=== PATIENT | male | born 1975 | race Caucasian/White ===

== ENCOUNTER 2017-03-03 12:22 | Emergency (ER) | payer BC ==
[2017-03-03 12:32] VITALS: BP 141/101
--- NOTE | 2017-03-03 14:07 | EDM.PDOC ---
ED HPI GENERAL MEDICAL PROBLEM - General Chief Complaint: Genitourinary Problem Stated Complaint: LEFT TESTICLE PAIN Time Seen by Provider: 03/03/17 12:38 Source of Information: Reports: Patient History Limitations: Reports: No Limitations - History of Present Illness INITIAL COMMENTS - FREE TEXT/NARRATIVE: The patient presents with left testicular pain that started last night. He denies any trauma. He has no dysuria or hematuria. This has never happened to him before. He has no drainage. He has no lesions. Onset: Gradual Duration: Day(s): (Last night) Quality: Reports: Ache Severity: Moderate Improves with: Reports: None Worsens with: Reports: Movement Associated Symptoms: Reports: No Other Symptoms Left Pelvic Pain Score (Numeric/FACES): 1 - Related Data Allergies Allergy/AdvReac Type Severity Reaction Status Date / Time No Known Allergies Allergy Verified 03/03/17 12:32 Home Meds: Home Meds Cholecalciferol (Vitamin D3) [Vitamin D] 1 tab PO DAILY 03/03/17 [History] Indomethacin 1 tab PO DAILY PRN 03/03/17 [History] Levofloxacin [Levaquin] 500 mg PO Q24H #10 tablet 03/03/17 [Rx] Past Medical History Musculoskeletal History: Reports: Gout - Past Surgical History Musculoskeletal Surgical History: Reports: Other (See Below) Other Musculoskeletal Surgeries/Procedures:: knee surgery 2004 Social & Family History - Tobacco Use Smoking Status *Q: Current Every Day Smoker Years of Tobacco use: 20 Packs/Tins Daily: 0.5 - Caffeine Use Caffeine Use: Reports: Soda - Alcohol Use Days Per Week of Alcohol Use: 1 Number of Drinks Per Day: 4 Total Drinks Per Week: 4 - Recreational Drug Use Recreational Drug Use: Yes Drug Use in Last 12 Months: No Recreational Drug Type: Reports: Cocaine ED ROS GENERAL - Review of Systems Review Of Systems: See Below Constitutional: Reports: No Symptoms HEENT: Reports: No Symptoms Respiratory: Reports: No Symptoms Cardiovascular: Reports: No Symptoms Endocrine: Reports: No Symptoms GI/Abdominal: Reports: No Symptoms : Reports: Other (Left testicular pain) ED EXAM, GI/ABD - Physical Exam Exam: See Below Exam Limited By: No Limitations General Appearance: Alert, No Apparent Distress Ears: Normal External Exam Nose: Normal Inspection Head: Atraumatic, Normocephalic Neck: Normal Inspection Respiratory/Chest: No Respiratory Distress, Lungs Clear, Normal Breath Sounds Cardiovascular: Regular Rate, Rhythm, No Edema, No Murmur GI/Abdominal: Soft, Non-Tender, No Organomegaly, No Mass (Male) Exam: Other (Pain upon palpation to the left testicle. No palpable masses. No lesions or discharge noted.) Course - Vital Signs Last Recorded V/S: Last Vital Signs Temp 97.6 F 03/03/17 12:28 Pulse 79 03/03/17 12:28 Resp 18 03/03/17 12:28 BP 141/101 H 03/03/17 12:28 Pulse Ox 98 03/03/17 12:28 - Orders/Labs/Meds Labs: Laboratory Tests 03/03/17 Range/Units 13:40 Urine Color Yellow (Yellow) Urine Appearance Clear (Clear) Urine pH 7.0 (5.0-8.0) Ur Specific [place] 1.020 (1.005-1.030) Urine Protein Trace H (Negative) Urine Glucose (UA) Negative (Negative) Urine Ketones Negative (Negative) Urine Occult Blood Negative (Negative) Urine Nitrite Negative (Negative) Urine Bilirubin Negative (Negative) Urine Urobilinogen 0.2 (0.2-1.0) Ur Leukocyte Esterase Trace H (Negative) Urine RBC 0-5 (0-5) /hpf Urine WBC 5-10 H (0-5) /hpf Ur Epithelial Cells 0-5 (0-5) /hpf Amorphous Sediment Moderate H (NOT SEEN) /hpf Urine Bacteria Few (FEW) /hpf Urine Mucus Few (FEW) /hpf - Re-Assessments/Exams Free Text/Narrative Re-Assessment/Exam: 03/03/17 14:06 I ordered an US of his scrotum and a UA. 03/03/17 14:17 The US shows increased vascularity within the left epididymis raising the possibility of left-sided epididymitis. His UA shows no UTI. I will get him on levaquin for 10 days. Departure - Departure Time of Disposition: 14:20 Disposition: Home, Self-Care 01 Condition: Good Clinical Impression: Epididymitis - Discharge Information Prescriptions: Levofloxacin [Levaquin] 500 mg PO Q24H #10 tablet Referrals: Galina Cantrell DO [Primary Care Provider] - 1 Week Forms: ED Department Discharge Additional Instructions: Take tylenol or ibuprofen for the pain. Take the levaquin daily for 10 days. Please follow up with your doctor or return if you are not getting better in a few days or if you are getting worse.
--- NOTE | 2017-03-03 14:12 | US ---
Testicular ultrasound: Multiple real-time images were obtained. Testicles have a homogeneous ultrasound appearance. Both arterial and venous blood flow are seen within the testicles. Minimal 2 mm cyst is noted within the left epididymis. Left epididymis is extremely vascular raising the possibility of epididymitis. No hydrocele is seen on the left side. Small right sided hydrocele is seen. Measurements: Right testicle: 5.0 x 2.7 x 3.3 cm Left testicle: 4.3 x 2.7 x 3.4 cm Impression: 1. Increased vascularity within the left epididymis raising the possibility of left-sided epididymitis. 2. Other incidental findings. Diagnostic code #3
== END 2017-03-03 14:40 | disposition home or self-care (01) ==
LOC: JD.ED 12:22
DX: N45.1 Epididymitis (principal); F17.210 Nicotine dependence, cigarettes, uncomplicated; Z98.890 Other specified postprocedural states; Z79.899 Other long term (current) drug therapy; Z79.02 Long term (current) use of antithrombotics/antiplatelets
CPT/HCPCS: 76870; 76870-26; 81001; 93975; 99283; 99284-25

== ENCOUNTER 2018-04-28 13:04 | Emergency (ER) | payer BC ==
[2018-04-28 13:14] VITALS: BP 141/83
--- NOTE | 2018-04-28 14:02 | EDM.PDOC ---
ED HPI GENERAL MEDICAL PROBLEM - General Chief Complaint: Lower Extremity Injury/Pain Stated Complaint: KNEE PROBLEM Time Seen by Provider: 04/28/18 13:17 Source of Information: Reports: Patient History Limitations: Reports: No Limitations - History of Present Illness INITIAL COMMENTS - FREE TEXT/NARRATIVE: The patient presents with left knee pain and swelling. The patient said this started last night. He has a history of gout. He usually gets the pain in the left great toe but earlier this week he had a flare up to the right ankle. He took his indomethicin and that did help. He denies any trauma. He says the knee does not seem unstable. He has no fever, chills, cough, chest pain or shortness of breath. Onset: Sudden Duration: Day(s): (Last night) Location: Reports: Lower Extremity, Left (Knee) Quality: Reports: Sharp Severity: Moderate Improves with: Reports: Immobilization Worsens with: Reports: Movement Context: Denies: Trauma Associated Symptoms: Reports: No Other Symptoms left knee Pain Score (Numeric/FACES): 7 - Related Data Allergies Allergy/AdvReac Type Severity Reaction Status Date / Time No Known Allergies Allergy Verified 04/28/18 13:14 Home Meds: Home Meds Indomethacin 1 tab PO TID PRN 03/03/17 [History] Hydrocodone/Acetaminophen [Hydrocodon-Acetaminophen 5-325] 1 - 2 each PO Q6HR PRN #20 tablet 04/28/18 [Rx] predniSONE [Prednisone] 40 mg PO DAILY #10 tablet 04/28/18 [Rx] Past Medical History HEENT History: Reports: Impaired Vision Musculoskeletal History: Reports: Gout Neurological History: Reports: Vertigo Psychiatric History: Reports: Addiction, Anxiety, Depression - Past Surgical History Musculoskeletal Surgical History: Reports: Other (See Below) Other Musculoskeletal Surgeries/Procedures:: knee surgery 2004 Social & Family History - Family History Family Medical History: Noncontributory - Tobacco Use Smoking Status *Q: Current Every Day Smoker Years of Tobacco use: 20 Packs/Tins Daily: 0.7 - Caffeine Use Caffeine Use: Reports: Coffee, Soda Other Caffeine Use: Daily. 24oz of mnt dew. - Recreational Drug Use Recreational Drug Use: No Review of Systems - Review of Systems Review Of Systems: See Below Constitutional: Reports: No Symptoms Eyes: Reports: No Symptoms Ears: Reports: No Symptoms Nose: Reports: No Symptoms Mouth/Throat: Reports: No Symptoms Respiratory: Reports: No Symptoms Cardiovascular: Reports: No Symptoms GI/Abdominal: Reports: No Symptoms Genitourinary: Reports: No Symptoms Musculoskeletal: Reports: Other (Left knee pain and swelling) ED EXAM, GENERAL - Physical Exam Exam: See Below Exam Limited By: No Limitations General Appearance: Alert, No Apparent Distress Ears: Normal External Exam Nose: Normal Inspection Head: Atraumatic, Normocephalic Neck: Normal Inspection Respiratory/Chest: No Respiratory Distress Extremities: Other (Mild to moderate edema to the left knee with mild pain upon palpation to the lateral and medial knee. The ligaments and tendons appear stable. Good sensation and pulses distally.) Course - Vital Signs Last Recorded V/S: Last Vital Signs Temp 97.7 F 04/28/18 13:12 Pulse 122 H 04/28/18 13:12 Resp 18 04/28/18 13:12 BP 141/83 H 04/28/18 13:12 Pulse Ox 100 04/28/18 13:12 - Orders/Labs/Meds Orders: Active Orders 24 hr Category Date Time Status Knee Min 4V Lt [CR] Stat Exams 04/28/18 13:25 Taken SEDIMENTATION RATE AUTO [HEME] Stat Lab 04/28/18 13:36 Received Labs: Laboratory Tests 04/28/18 04/28/18 Range/Units 13:36 13:36 WBC 9.64 H (4.23-9.07) K/mm3 RBC 5.32 (4.63-6.08) M/mm3 Hgb 16.5 (13.7-17.5) gm/L Hct 47.4 (40.1-51.0) % MCV 89.1 (79.0-92.2) fl MCH 31.0 (25.7-32.2) pg MCHC 34.8 (32.2-35.5) g/dl RDW Std Deviation 42.2 (35.1-43.9) fL Plt Count 203 (163-337) K/mm3 MPV 10.8 (9.4-12.3) fl Neut % (Auto) 76.4 H (34.0-67.9) % Lymph % (Auto) 13.0 L (21.8-53.1) % [place] % (Auto) 7.7 (5.3-12.2) % Eos % (Auto) 2.4 (0.8-7.0) Baso % (Auto) 0.3 (0.1-1.2) % Neut # (Auto) 7.37 H (1.78-5.38) K/mm3 Lymph # (Auto) 1.25 L (1.32-3.57) K/mm3 [place] # (Auto) 0.74 (0.30-0.82) K/mm3 Eos # (Auto) 0.23 (0.04-0.54) K/mm3 Baso # (Auto) 0.03 (0.01-0.08) K/mm3 Uric Acid 9.7 H (3.5-7.2) mg/dL C-Reactive Protein 3.2 H* (<1.0) mg/dL - Re-Assessments/Exams Free Text/Narrative Re-Assessment/Exam: 04/28/18 14:03 I ordered an x-ray of his knee and labs. His x-ray looks good. 04/28/18 14:52 His WBC was elevated at 9.64. His uric acid was elevated at 9.7. His CRP is elevated at 3.2. I will get him on some prednisone and some hydrocodone for pain. I will also get him some crutches. Departure - Departure Time of Disposition: 14:55 Disposition: Home, Self-Care 01 Condition: Good Clinical Impression: Gout attack Qualifiers: Gout site: knee Gout etiology: idiopathic Laterality: left Qualified Code(s): M10.062 - Idiopathic gout, left knee - Discharge Information *PRESCRIPTION DRUG MONITORING PROGRAM REVIEWED*: No *COPY OF PRESCRIPTION DRUG MONITORING REPORT IN PATIENT LEVI: No Prescriptions: Hydrocodone/Acetaminophen [Hydrocodon-Acetaminophen 5-325] 1 - 2 each PO Q6HR PRN #20 tablet PRN Reason: Pain predniSONE [Prednisone] 40 mg PO DAILY #10 tablet Referrals: PCP,Unknown [Primary Care Provider] - Forms: ED Department Discharge Additional Instructions: Take the prednisone 40mg daily for 5 days. Take the hydrocodone as needed for pain. Use the juwan wrap and crutches as needed for pain. Please return if you are worse. - My Orders Last 24 Hours: My Active Orders 04/28/18 13:25 Knee Min 4V Lt [CR] Stat 04/28/18 13:36 SEDIMENTATION RATE AUTO [HEME] Stat - Assessment/Plan Last 24 Hours: My Active Orders 04/28/18 13:25 Knee Min 4V Lt [CR] Stat 04/28/18 13:36 SEDIMENTATION RATE AUTO [HEME] Stat
== END 2018-04-28 15:03 | disposition home or self-care (01) ==
LOC: JD.ED 13:04
DX: M10.062 Idiopathic gout, left knee (principal); F17.210 Nicotine dependence, cigarettes, uncomplicated; Z79.899 Other long term (current) drug therapy
CPT/HCPCS: 36415; 73564-LT; 84550; 85025; 85652; 86140; 99283; 99284

== ENCOUNTER 2021-02-21 21:54 | Emergency (ER) | payer BC ==
[2021-02-21 22:17] VITALS: BP 175/95; PULSE 85
--- NOTE | 2021-02-21 22:39 | EDM.PDOC ---
ED HPI GENERAL MEDICAL PROBLEM - General Chief Complaint: Flank Pain Stated Complaint: LOWER BACK PAIN Time Seen by Provider: 02/21/21 22:26 Source of Information: Reports: Patient, RN Notes Reviewed - History of Present Illness INITIAL COMMENTS - FREE TEXT/NARRATIVE: 46 yr old male with off and on L low back pain for this past 5 days. Pain has been more often today but still comes and goes. Does not radiate to flank or groin. No fever, chills, nausea vomiting or voiding sx. Left Flank Pain Score (Numeric/FACES): 5 - Related Data Allergies Allergy/AdvReac Type Severity Reaction Status Date / Time No Known Allergies Allergy Verified 02/21/21 22:14 Home Meds: Home Meds allopurinoL [Zyloprim] 100 mg PO DAILY 02/21/21 [History] Past Medical History HEENT History: Reports: Impaired Vision Musculoskeletal History: Reports: Gout Neurological History: Reports: Vertigo Psychiatric History: Reports: Addiction, Anxiety, Depression - Past Surgical History Musculoskeletal Surgical History: Reports: Other (See Below) Other Musculoskeletal Surgeries/Procedures:: knee surgery 2004 Social & Family History - Family History Family Medical History: No Pertinent Family History - Caffeine Use Caffeine Use: Reports: Coffee, Soda Other Caffeine Use: Daily. 24oz of mnt dew. ED ROS GENERAL - Review of Systems Review Of Systems: See Below Constitutional: Denies: Fever, Chills, Diaphoresis HEENT: Reports: No Symptoms Respiratory: Denies: Shortness of Breath Cardiovascular: Denies: Chest Pain GI/Abdominal: Denies: Abdominal Pain, Nausea, Vomiting Musculoskeletal: Reports: Back Pain Skin: Reports: No Symptoms Neurological: Reports: No Symptoms ED EXAM,LOWER BACK PAIN/INJURY - Physical Exam Exam: See Below General Appearance: Alert, No Apparent Distress Head: Atraumatic Neck: Supple Respiratory/Chest: No Respiratory Distress, Normal Breath Sounds Cardiovascular: Regular Rate, Rhythm GI/Abdominal: Soft, Non-Tender. No: Guarding Back Exam: No: CVA Tenderness (L), CVA Tenderness (R), Paraspinal Tenderness, Vertebral Tenderness Extremities: Normal Inspection, Normal Range of Motion Neurological: Alert, No Motor/Sensory Deficits Course - Vital Signs Last Recorded V/S: Last Vital Signs Temp 98.5 F 02/21/21 22:15 Pulse 85 02/21/21 22:15 Resp 18 02/21/21 22:15 BP 175/95 H 02/21/21 22:15 Pulse Ox 100 02/21/21 22:15 - Orders/Labs/Meds Labs: Laboratory Tests 02/21/21 02/21/21 02/21/21 Range/Units 22:45 22:45 23:40 WBC 6.62 (4.23-9.07) K/mm3 RBC 5.19 (4.63-6.08) M/mm3 Hgb 16.1 (13.7-17.5) gm/dl Hct 46.8 (40.1-51.0) % MCV 90.2 (79.0-92.2) fl MCH 31.0 (25.7-32.2) pg MCHC 34.4 (32.2-35.5) g/dl RDW Std Deviation 44.1 H (35.1-43.9) fL Plt Count 189 (163-337) K/mm3 MPV 10.8 (9.4-12.3) fl Neut % (Auto) 54.2 (34.0-67.9) % Lymph % (Auto) 30.7 (21.8-53.1) % [place] % (Auto) 9.2 (5.3-12.2) % Eos % (Auto) 5.1 (0.8-7.0) Baso % (Auto) 0.5 (0.1-1.2) % Neut # (Auto) 3.59 (1.78-5.38) K/mm3 Lymph # (Auto) 2.03 (1.32-3.57) K/mm3 [place] # (Auto) 0.61 (0.30-0.82) K/mm3 Eos # (Auto) 0.34 (0.04-0.54) K/mm3 Baso # (Auto) 0.03 (0.01-0.08) K/mm3 Sodium 140 (136-145) mEq/L Potassium 3.8 (3.5-5.1) mEq/L Chloride 103 (98-107) mEq/L Carbon Dioxide 25 (21-32) mEq/L Anion Gap 15.8 H (5-15) BUN 15 (7-18) mg/dL Creatinine 1.1 (0.7-1.3) mg/dL Est Cr Clr Drug Dosing 86.64 mL/min Estimated GFR (MDRD) > 60 (>60) mL/min BUN/Creatinine Ratio 13.6 L (14-18) Glucose 103 H (70-99) mg/dL Calcium 9.5 (8.5-10.1) mg/dL Total Bilirubin 0.5 (0.2-1.0) mg/dL AST 21 (15-37) U/L ALT 42 (16-63) U/L Alkaline Phosphatase 75 (46-116) U/L Total Protein 7.2 (6.4-8.2) g/dl Albumin 3.9 (3.4-5.0) g/dl Globulin 3.3 gm/dL Albumin/Globulin Ratio 1.2 (1-2) Urine Color Yellow (Yellow) Urine Appearance Clear (Clear) Urine pH 6.0 (5.0-8.0) Ur Specific [place] 1.025 (1.005-1.030) Urine Protein Negative (Negative) Urine Glucose (UA) Negative (Negative) Urine Ketones Negative (Negative) Urine Occult Blood Trace-lysed H (Negative) Urine Nitrite Negative (Negative) Urine Bilirubin Negative (Negative) Urine Urobilinogen 0.2 (0.2-1.0) Ur Leukocyte Esterase Negative (Negative) Urine RBC 0-5 (0-5) /hpf Urine WBC 0-5 (0-5) /hpf Ur Epithelial Cells Not seen (0-5) /hpf Urine Bacteria Rare (FEW) /hpf Urine Mucus Rare (FEW) /hpf Meds: Medications Discontinued Medications Generic Name Dose Route Start Last Admin Trade Name Freq PRN Reason Stop Dose Admin Hydromorphone HCl 0.5 mg 02/21/21 23:44 02/22/21 00:10 Hydromorphone 0.5 Mg/0.5 Ml Syringe IM 02/21/21 23:45 0.5 mg ONETIME ONE Administration - Re-Assessments/Exams Free Text/Narrative Re-Assessment/Exam: 02/22/21 05:43 Ua normal, trace RBC's only, WBC normal. Dilaudid 0.5 mg IM ordered by other provider. Patient's discomfort does not radiate to L flank or L groin but also does not seem to be musculoskeletal. I did offer to do abd/pelvic CT without contrast to check for stone or other renal cause of discomfort. Pt and spouse prefer to wait. They want to see how it goes for a day or 2 and follow up with Dr Barreto. Discharge instr. as documented. Departure - Departure Time of Disposition: 00:07 Disposition: Home, Self-Care 01 Condition: Fair Clinical Impression: Back pain Qualifiers: Back pain location: low back pain Chronicity: acute Back pain laterality: unspecified Sciatica presence: without sciatica Qualified Code(s): M54.5 - Low back pain - Discharge Information Instructions: Acute Back Pain, Adult Referrals: Myron Barreto MD [Primary Care Provider] - Forms: ED Department Discharge Additional Instructions: Drink plenty of water to maintain hydration. Alternate tylenol and ibuprofen as needed for pain. See Dr Barreto for further eval and treatment, next available appt. Return to ED as needed. Sepsis Event Note (ED) - Evaluation Sepsis Screening Result: No Definite Risk - Focused Exam Vital Signs: Vital Signs Temp Pulse Resp BP Pulse Ox 02/21/21 22:15 98.5 F 85 18 175/95 H 100
[2021-02-21] MEDS ORDERED: HYDROmorphone 0.5 MG/0.5 ML Syringe IM ONE (23:44)
== END 2021-02-22 00:15 | disposition home or self-care (01) ==
LOC: JD.ED 21:54
DX: M54.5 Low back pain (principal)
CPT/HCPCS: 36415; 80053; 81001; 85025; 96372; 99283; J1170